=== PATIENT | female | born 1960 | race Caucasian/White ===

== ENCOUNTER 2019-01-14 10:06 | Day surgery (SDC) | payer OTHER ==
[~2019-01-14 10:06] MED LIST: ACETAMINOPHEN325 M2 PO; CLARITIN10 M1 PO; IRBESARTAN-HCT1 EAC1 PO
[2019-01-14] MEDS ORDERED: PERCOCET 5-3251 EACH PO (13:36)
[2019-01-14] MEDS ORDERED: NUPERCAINAL56.7 GM TOP (13:37)
== END 2019-01-14 17:20 | disposition home or self-care (01) ==
LOC: CIR.AMB 10:06
DX: K62.0 Anal polyp (principal); K64.2 Third degree hemorrhoids